=== PATIENT | male | born 2000 | race Two or more races ===

== ENCOUNTER → 2022-10-22 | Outpatient (CLI) | payer OTHER ==
[2022-10-22 22:42] LABS: COVID AG,FIA SOURCE NASAL SWAB
== END | disposition home or self-care (01) ==
LOC: LABMN 17:54
PROVIDERS: ATTEND Internal Medicine Cardiovascular Disease
DX: R69 Illness, unspecified (principal); Z20.822 Contact with and (suspected) exposure to COVID-19